=== PATIENT | female | born 1945 | race Caucasian/White ===

== ENCOUNTER 2024-09-01 12:44 | Emergency (ER) | payer MEDICARE, BC ==
[~2024-09-01] VITALS: Ht 167.6 cm; Wt 88.6 kg
[2024-09-01 17:11] VITALS: BP 124/86
== END 2024-09-01 17:10 | disposition home or self-care (01) ==
LOC: ED 12:44
DX: S00.03XA Contusion of scalp, initial encounter (principal); W01.198A Fall on same level from slipping, tripping and stumbling with subsequent striking against other object, initial encounter; Y93.K1 Activity, walking an animal